=== PATIENT | female | born 1990 | race Caucasian/White ===

== ENCOUNTER → 2017-02-06 | Outpatient (CLI) | payer BC ==
--- NOTE | 2017-02-09 21:45 | POLYSOMNOGRAPH REPORT ---
REFERRING PHYSICIAN: Dr. Kathy Spicer. CLINICAL DATA: The patient is a 26-year-old female who has a BMI of 28.19. She has complaints of disturbed nocturnal sleep, fatigue, morning headaches, and excessive daytime somnolence. She has a history of hypertension. There is a strong family history of obstructive sleep apnea in her father and 2 siblings. This was an in-lab diagnostic sleep study. SLEEP ARCHITECTURE: The total sleep period was 422.5 minutes and the total sleep time was 419 minutes. Sleep efficiency was normal at 94%. The sleep onset latency was mildly prolonged at 23.5 minutes. Wake after sleep onset was short at only 3.5 minutes. REM latency was normal at 86.5 minutes. Sleep consisted of stage N1 5%, stage N2 52%, stage N3 21%, and stage REM 22%. AROUSAL DATA: The patient had a total of 33 arousals for an index of 5. These included 20 spontaneous, 10 PLM, and 4 snoring arousals. PLM DATA: The patient had a total of 201 periodic limb movements of sleep for an index of 28.8. There were 10 arousals for a PLM arousal index of 1.4. EKG: The cardiac rhythm was normal sinus. The cardiac rates ranged from 61-108 beats per minute with an average of 76 beats per minute. No arrhythmia was noted. RESPIRATORY DATA: The patient had a total of only 1 respiratory event, a hypopnea. Hypopneas were scored according to the 4% desaturation rule. The apnea hypopnea index was normal at 0.1. This would not suggest any significant sleep apnea. OXIMETRY DATA: Oxygen saturation average 95% throughout the night. The minimum saturation was 92%. This would be considered normal. PROCESS SUPERVISOR COMMENTS: The patient slept in the left and supine positions. PLMs were noted. No bruxism noted. Snoring was noted and scored as a 1 on a scale of 1 through 5. The patient stated she slept a little better than usual. IMPRESSIONS: 1. Periodic limb movement disorder. 2. No evidence of sleep apnea. COMMENTS: The patient had a normal sleep efficiency. Sleep architecture was normal. Oxygenation was normal. The only significant abnormality was that of a moderate number of limb movements. These were not, however, associated with significant arousals. Clinical correlation is required to determine if she has restless legs which may contribute to her disturbed nocturnal sleep. It could also be that her medications could be contributing to the limb movements. She is currently on sertraline. She previously had been on Effexor. Review of her history reports that she has vivid dreams which may be associated with breathlessness and sensation of her heart pounding. It was unclear if any of these could be nocturnal hallucinations. Likewise, she does have a history of sleep paralysis occurring several times per month. It is unknown if she has cataplexy. Her Lincoln score was 13, which would be moderate. With a history of sleep paralysis and questionable nocturnal hallucinations, the possibility of underlying narcolepsy cannot be excluded. RECOMMENDATIONS: 1. The patient should be advised of the appropriate principles of sleep hygiene, which would include having a fairly regular sleep-wake schedule and allowing herself 7.5 hours of sleep time per night. 2. If narcolepsy is considered the possibility, would give consideration to repeating an overnight sleep study to be then followed by multiple sleep latency testing. However, she would need to be off of medications such as, sertraline for at least 7 days and perhaps longer prior to doing the test because of the REM suppression effects of sertraline. 3. Consideration is given to obtaining a serum ferritin level in order to evaluate that as a possible abnormality contributing to the leg movements. 4. Clinical correlation would be advised to determine if she is a candidate for pharmacological therapy of the leg movement abnormality.
== END | disposition home or self-care (01) ==
LOC: C.NEUR 20:00
PROVIDERS: ATTEND Physician Assistant
DX: R53.83 Other fatigue (principal); I10 Essential (primary) hypertension; R06.83 Snoring; G47.61 Periodic limb movement disorder

== ENCOUNTER → 2017-03-24 | Outpatient (CLI) | payer BC ==
[~2017-03-24] VITALS: Ht 167 cm; Wt 83.3 kg
[2017-03-24 14:14] VITALS: BP 131/88; PULSE 88; Ht 167 cm; Wt 83.3 kg
== END | disposition home or self-care (01) ==
LOC: C.NEUR 13:51
PROVIDERS: ATTEND Physician Assistant
DX: G47.61 Periodic limb movement disorder (principal)